=== PATIENT | female | born 1970 | race Caucasian/White ===

== ENCOUNTER 2016-12-09 09:22 | Observation (INO) | payer MEDICAID ==
[2016-12-09] MEDS ORDERED: ASPIRIN 81 MG TABLET, CHEWABLE PO ONE (10:20)
--- NOTE | 2016-12-09 10:24 | ER Document Report ---
ED Medical Screen (RME) - General Chief Complaint: Chest Pain Stated Complaint: CHEST PAINS Mode of Arrival: Ambulatory Information source: Patient Notes: This is a 46-year-old female who presents to the ER with substernal chest pain. She states that the pain started at rest at about 1900 last night. She had difficulty sleeping. The pain is described as a pressure that radiates to her left upper extremity. She has had associated nausea and diaphoresis as well as shortness of breath. No prior history of this chest pain. She states she had a stress test in 2013. She has significant family history of coronary artery disease including a sister who had a heart attack at age 51 and 2 brothers who have had bypass surgery. TRAVEL OUTSIDE OF THE [place] IN LAST 30 DAYS: No - Related Data Allergies/Adverse Reactions: cimetidine [From Tagamet] Allergy (Verified 05/28/14 15:53) cimetidine HCl [From Tagamet] Allergy (Verified 05/28/14 15:53) prochlorperazine edisylate [From Compazine] Allergy (Verified 05/28/14 15:53) prochlorperazine maleate [From Compazine] Allergy (Verified 05/28/14 15:53) Past Medical History Neurological Medical History: Reports: Hx Migraine Renal/ Medical History: Denies: Hx Peritoneal Dialysis Past Surgical History: Reports: Hx Appendectomy, Hx Cholecystectomy, Hx Orthopedic Surgery - left knee - Immunizations Hx Diphtheria, Pertussis, Tetanus Vaccination: Yes Physical Exam - Vital signs Vitals: Temp Pulse Resp BP Pulse Ox 98.5 F 65 16 138/85 H 98 12/09/16 09:32 12/09/16 09:32 12/09/16 09:32 12/09/16 09:32 12/09/16 09:32 - General General appearance: Appears well In distress: None - Respiratory Respiratory status: No respiratory distress Breath sounds: Normal. No: Rales, Rhonchi, Wheezing - Cardiovascular Rhythm: Regular Heart sounds: Normal auscultation, S1 appreciated, S2 appreciated Course - Vital Signs Vital signs: Temp Pulse Resp BP Pulse Ox 98.5 F 65 16 138/85 H 98 12/09/16 09:32 12/09/16 09:32 12/09/16 09:32 12/09/16 09:32 12/09/16 09:32
--- NOTE | 2016-12-09 11:35 | ER Document Report ---
ED Cardiac - General Chief Complaint: Chest Pain Stated Complaint: CHEST PAINS Mode of Arrival: Ambulatory Information source: Patient Notes: Patient is a 46-year-old female who presents today with 2 weeks of intermittent palpitations lasting line 5 minutes. She states she has had 3 episodes in the last 2 weeks. She states yesterday she had some substernal "pressure", that was constant, worse when she touches it and leans forward. Mild radiation to the back. She states some shortness of breath. She denies any recent trips or travel. She does state she's had some lower extremity bilateral "cramping", left greater than right. She states nausea without vomiting. She denies any other aggravating or relieving factors. It is nonexertional. She does not smoke. Patient's brother had bypass at 57 years of age. Patient is still having menstrual periods. TRAVEL OUTSIDE OF THE [place] IN LAST 30 DAYS: No - HPI Patient complains to provider of: Chest pain Was the onset of pain: Gradual Is the pain a: New problem Chest pain radiation location: Back Severity now: Mild Severity at worst: Moderate Pain level currently: 1 Cardiac risk factors: + Family history Positive cardiac history: No Associated symptoms: Other - See above Exacerbated by: Denies Relieved by: Nothing Similar symptoms previously: No Recently seen / treated by doctor: No - Related Data Allergies/Adverse Reactions: cimetidine [From Tagamet] Allergy (Verified 05/28/14 15:53) cimetidine HCl [From Tagamet] Allergy (Verified 05/28/14 15:53) prochlorperazine edisylate [From Compazine] Allergy (Verified 05/28/14 15:53) prochlorperazine maleate [From Compazine] Allergy (Verified 05/28/14 15:53) Past Medical History - General Information source: Patient - Social History Smoking Status: Never Smoker Cigarette use (# per day): No Chew tobacco use (# tins/day): No Smoking Education Provided: No Frequency of alcohol use: None Drug Abuse: None Family History: Reviewed & Not Pertinent Neurological Medical History: Reports: Hx Migraine Renal/ Medical History: Denies: Hx Peritoneal Dialysis Past Surgical History: Reports: Hx Appendectomy, Hx Cholecystectomy, Hx Orthopedic Surgery - left knee - Immunizations Hx Diphtheria, Pertussis, Tetanus Vaccination: Yes Review of Systems - Review of Systems Constitutional: denies: Fever EENT: denies: Eye discharge, Nose discharge Respiratory: denies: Short of breath Gastrointestinal: denies: Vomiting Genitourinary: denies: Dysuria Musculoskeletal: denies: Leg swelling Skin: Other - no hives. denies: Rash Neurological/Psychological: Other - no slurred speech -: Yes All other systems reviewed and negative Physical Exam - Vital signs Vitals: Temp Pulse Resp BP Pulse Ox 98.5 F 65 16 138/85 H 98 12/09/16 09:32 12/09/16 09:32 12/09/16 09:32 12/09/16 09:32 12/09/16 09:32 Notes: Reviewed vital signs and nursing note as charted by RN. CONSTITUTIONAL: Alert and oriented and responds appropriately to questions. Well -appearing; well-nourished HEAD: Normocephalic; atraumatic CARD: Regular rate and rhythm; no murmurs, no clicks, no rubs, no gallops; symmetric distal pulses RESP: Normal chest excursion without splinting or tachypnea; mild tenderness to palpation of the left anterior chest wall; breath sounds clear and equal bilaterally; no wheezes, no rhonchi, no rales. ABD/GI: Normal bowel sounds; non-distended; soft, non-tender, no rebound, no guarding; no palpable organomegaly or masses BACK: The back appears normal and is non-tender to palpation, there is no CVA tenderness EXT: Normal ROM in all joints; non-tender to palpation; no cyanosis, no effusions, no edema SKIN: Normal color for age and race; warm; dry; good turgor; capillary refill < 2 seconds; no acute lesions noted NEURO: CN II through XII are intact. Moves all extremities equally; Motor and sensory function intact PSYCH: The patient's mood and manner are appropriate. Grooming and personal hygiene are appropriate. Course - Re-evaluation Re-evalutation: 12/09/16 11:37 Heart rate 55, normal sinus rhythm, normal axis, incomplete right bundle branch block, no obvious ST elevation or depression. Given the history and physical examination, low heart score, tenderness to palpation reproducible, I do believe dissection and pulmonary embolism to be unlikely. Given that the patient complains of bilateral leg pain, left greater than right, I will Doppler the patient's lower extremity. Given that the family history, I will order one set of cardiac enzymes. 12/09/16 12:32 Labs as recorded. Normal d-dimer. 12/09/16 12:58 Labs as recorded. Normal thyroid level. Normal troponin. Doppler pending. Chest x-ray shows normal heart, normal mediastinum, no fractures, normal lung muñoz, no pneumothorax. 12/09/16 13:53 Doppler shows no DVT. Patient's vital signs are still stable. Given the history and physical examination with the above evaluation, with still tenderness upon palpation of the left chest, I believe it is reasonable to discharge the patient home with strict return precautions and follow-up at the primary care provider. - Vital Signs Vital signs: Temp Pulse Resp BP Pulse Ox 98.5 F 65 16 138/85 H 98 12/09/16 09:32 12/09/16 09:32 12/09/16 09:32 12/09/16 09:32 12/09/16 09:32 - Laboratory Result Diagrams: 12/09/16 11:42 12/09/16 11:42 Laboratory results interpreted by me: 12/09/16 11:42 RDW 14.3 H Discharge - Discharge Clinical Impression: Chest wall pain, Atypical chest pain Condition: Good Disposition: HOME, SELF-CARE Additional Instructions: Please take an 81 mg aspirin daily and please follow-up with your primary care physician as well as possibly the telephone collector as we have discussed for further evaluation. Come back immediately for any worsening pain, change in location or quality of pain, leg swelling, fever, or any other acute problems. Referrals: SUDEEP NAYLOR MD [Primary Care Provider] - Follow up as needed BENJY MILLER MD [ACTIVE STAFF] - Follow up as needed
[2016-12-09 12:00] LABS: ABSOLUTE BASOPHILS # (AUTO) 0.1 10^3/uL (0.0-0.2); ABSOLUTE EOSINOPHILS # (AUTO) 0.2 10^3/uL (0.0-0.6); ABSOLUTE LYMPHOCYTES (AUTO) 2.6 10^3/uL (0.5-4.7); ABSOLUTE MONOCYTES (AUTO) 0.9 10^3/uL (0.1-1.4); ABSOLUTE NEUT (AUTO) 5.2 10^3/uL (1.7-8.2); BASOPHILS % (AUTO) 1.2 % (0-2); EOSINOPHILS % (AUTO) 2.6 % (0-6); HEMATOCRIT 43.1 % (36.0-47.0); HEMOGLOBIN 14.3 g/dL (12.0-15.5); HGB HCT DIFFERENCE -0.2; LYMPHOCYTES % (AUTO) 29.2 % (13-45); MEAN CORPUSCULAR HEMOGLOBIN 29.4 pg (27.0-33.4); MEAN CORPUSCULAR HGB CONC 33.3 g/dL (32.0-36.0); MEAN CORPUSCULAR VOLUME 88 fl (80-97); MONOCYTES % (AUTO) 9.7 % (3-13); RED BLOOD COUNT 4.87 10^6/uL (3.72-5.28); RED CELL DISTRIBUTION WIDTH 14.3 % (11.5-14.0); SEGMENTED NEUTROPHILS % (AUTO) 57.3 % (42-78)
[2016-12-09 12:20] LABS: ALANINE AMINOTRANSFERASE 33 U/L (9-52); ALBUMIN 4.1 g/dL (3.5-5.0); ALKALINE PHOSPHATASE 83 U/L (38-126); ANION GAP 13 (5-19); ASPARTATE AMINO TRANSFERASE 20 U/L (14-36); BILIRUBIN,DIRECT 0.1 mg/dL (0.0-0.4); BILIRUBIN,TOTAL 0.5 mg/dL (0.2-1.3); BLOOD UREA NITROGEN 12 mg/dL (7-20); CALCIUM 9.6 mg/dL (8.4-10.2); CARBON DIOXIDE 23 mmol/L (22-30); CHLORIDE 107 mmol/L (98-107); CREATINE KINASE 79 U/L (30-135); CREATININE RESULT 0.81 mg/dL (0.52-1.25); GLUCOSE 93 mg/dL (75-110); POTASSIUM 4.1 mmol/L (3.6-5.0); SODIUM 142.9 mmol/L (137-145); TOTAL PROTEIN 7.2 g/dL (6.3-8.2)
[2016-12-09 12:33] LABS: CREATINE KINASE MB 0.97 ng/mL (<4.55); TROPONIN I < 0.012 ng/mL
[2016-12-09] MEDS ORDERED: MAG HYDROX/AL HYDROX/SIMETH SUSP 30 ML UDCUP PO ONE (14:25)
[2016-12-09] MEDS ORDERED: LIDOCAINE 2% VISCOUS SOLN 20 ML UDCUP PO ONE (14:25)
[2016-12-09] MEDS ORDERED: METOCLOPRAMIDE HCL ORAL SOLN 10 MG/10 ML UDCUP PO ONE (14:25)
[2016-12-09] MEDS ORDERED: ONDANSETRON HCL INJ/PF 4 MG/2 ML SDV IV PRN (15:58)
[2016-12-09] MEDS ORDERED: ONDANSETRON 4 MG TAB.RAPDIS PO PRN (15:58)
[2016-12-09] MEDS ORDERED: ACETAMINOPHEN 325 MG TABLET PO PRN (15:58)
[2016-12-09] MEDS ORDERED: DIAZEPAM 5 MG TABLET PO PRN (16:03)
--- NOTE | 2016-12-09 16:14 | XCELERA REPORT ---
[address] [address] Lower Extremity Venous Evaluation Name: JEAN PAUL PAREKH Age: 46 yrs Gender: Female : 1970 Patient Status: Emergency Patient Location: ER Study Date: 12/09/2016 01:07 PM Procedure: Color flow and duplex imaging of the veins of the left lower extremity as well as the right Common Femoral vein. Reason For Study: 4, left lower extremity pain Ordering Physician: ARIANA MEDRANO Performed By: Sadie Montelongo Right Sided Venous Evaluation The right common femoral vein is fully compressible. Spontaneous and phasic flow is present in the right common femoral vein. Left Sided Venous Evaluation Normal vessel filling wall to wall, compression and augmentation as well as Colour flow down to the infrageniculate veins. Critical Findings Called in to Dr Stan (O). Interpretation Summary No duplex evidence of DVT or obstruction in the left lower extremity nor in the right Common Femoral vein. : ARIANA MEDRANO > Yasir Tan
--- NOTE | 2016-12-09 16:29 | PDOC H&P ---
History of Present Illness Admission Date/PCP: 12/09/16 14:37 SUDEEP NAYLOR MD Patient complains of: Chest pain History of Present Illness: JEAN PAUL PAREKH is a 46 year old female who has a family history of heart disease who presents with chest pain. Patient reports that she began expressing chest pain yesterday evening and she described it as a substernal chest pressure that went through to her back. She has some associated nausea and diaphoresis but no vomiting. Patient reported the pain was initially 10 out of 10 and has continued through most of the night. The patient course that she is currently having minimal pain since coming to the emergency room. The patient denies any palpitations or tachycardia currently but has been using had episodes of palpitations and tachycardia. She denies any orthopnea or PND. She does have some nausea and does report acid reflux symptoms. She has a long history of gastric reflux and is currently on Zantac. She does occasionally have some sour brash taste also in the back of her throat. Patient reports that her pain did not get worse with walking or sitting and was not positional. It was not reproducible with palpation of her chest wall. She does report that if she thinks about eating some greasy food the pain does get somewhat worse however she had her gallbladder out several years ago. Past Medical History Cardiac Medical History: Denies: Coronary Artery Disease Pulmonary Medical History: Reports: None EENT Medical History: Reports: None Neurological Medical History: Reports: Migraine Endocrine Medical History: Reports: None Renal/ Medical History: Reports: None Malignancy Medical History: Reports: None GI Medical History: Reports: Gastroesophageal Reflux Disease Musculoskeltal Medical History: Reports: None Psychiatric Medical History: Reports: None Hematology: Reports: None Infectious Medical History: Reports: None Past Surgical History Past Surgical History: Reports: Appendectomy, Cholecystectomy, Orthopedic Surgery - left knee Social History Information Source: Patient Lives with: Spouse/Significant other Smoking Status: Never Smoker Frequency of Alcohol Use: None Hx Recreational Drug Use: No Drugs: None Hx Prescription Drug Abuse: No - Advance Directive Resuscitation Status: Full Code Surrogate healthcare decision maker:: Her significant other is Jimbo Sprague. Family History Family History: Mother at age 81 from coronary artery disease and diabetes. Father at age 64 from coronary artery disease. Parental Family History Reviewed: Yes Children Family History Reviewed: No Sibling(s) Family History Reviewed.: No Medication/Allergy Home Medications: Ranitidine HCl [Zantac 150 mg Tablet] 150 mg PO DAILY 12/09/16 Zolmitriptan [Zomig] 5 mg PO ASDIR PRN 12/09/16 Allergies/Adverse Reactions: cimetidine [From Tagamet] Allergy (Verified 05/28/14 15:53) cimetidine HCl [From Tagamet] Allergy (Verified 05/28/14 15:53) prochlorperazine edisylate [From Compazine] Allergy (Verified 05/28/14 15:53) prochlorperazine maleate [From Compazine] Allergy (Verified 05/28/14 15:53) Review of Systems Constitutional: ABSENT: chills, fever(s), headache(s), weight gain, weight loss Eyes: ABSENT: visual disturbances Ears: ABSENT: hearing changes Cardiovascular: PRESENT: as per HPI Respiratory: ABSENT: cough, hemoptysis Gastrointestinal: PRESENT: heartburn, nausea. ABSENT: coffee ground emesis, hematemesis, melena Genitourinary: ABSENT: dysuria, hematuria Musculoskeletal: ABSENT: joint swelling Integumentary: ABSENT: rash, wounds Neurological: ABSENT: abnormal gait, abnormal speech, confusion, dizziness, focal weakness, syncope Psychiatric: ABSENT: anxiety, depression Endocrine: ABSENT: cold intolerance, heat intolerance, polydipsia, polyuria Hematologic/Lymphatic: ABSENT: easy bleeding, easy bruising Physical Exam Vital Signs: Temp Pulse Resp BP Pulse Ox 98.5 F 65 16 138/85 H 98 12/09/16 09:32 12/09/16 09:32 12/09/16 09:32 12/09/16 09:32 12/09/16 09:32 General appearance: PRESENT: no acute distress, well-developed, well-nourished Head exam: PRESENT: atraumatic, normocephalic Eye exam: PRESENT: conjunctiva pink, EOMI, PERRLA. ABSENT: scleral icterus Ear exam: PRESENT: normal external ear exam Mouth exam: PRESENT: moist, tongue midline Neck exam: ABSENT: carotid bruit, JVD, lymphadenopathy, thyromegaly Respiratory exam: PRESENT: clear to auscultation keyla. ABSENT: rales, rhonchi, wheezes Cardiovascular exam: PRESENT: RRR. ABSENT: diastolic murmur, rubs, systolic murmur Pulses: PRESENT: normal dorsalis pedis pul Vascular exam: PRESENT: normal capillary refill GI/Abdominal exam: PRESENT: normal bowel sounds, soft. ABSENT: distended, guarding, mass, organolmegaly, rebound, tenderness Rectal exam: PRESENT: deferred Extremities exam: ABSENT: calf tenderness, clubbing, pedal edema Neurological exam: PRESENT: alert, awake, oriented to person, oriented to place , oriented to time, oriented to situation, CN II-XII grossly intact. ABSENT: motor sensory deficit Psychiatric exam: PRESENT: appropriate affect Skin exam: PRESENT: dry, intact, warm. ABSENT: cyanosis, rash Results Impressions: Chest X-Ray 12/09/16 10:21 IMPRESSION: NO ACUTE RADIOGRAPHIC FINDING IN THE CHEST. Assessment & Plan - Diagnosis (1) Chest pain Qualifiers: Chest pain type: unspecified Qualified Code(s): R07.9 - Chest pain, unspecified Is this a current diagnosis for this admission?: YesPlan: The patient has a family history of heart disease but has no other risk factors herself. The pain is suggestive of a reflux in that she has some nausea, sour brash, radiation through to her back. The patient's d-dimer was unremarkable and the possibility of a pulmonary embolus was considered but is highly unlikely in light of a normal d-dimer. We will increase her Zantac to 300 mg twice a day and monitor on telemetry. We'll check serial cardiac enzymes and if the enzymes are unremarkable we'll plan on doing a stress test in the morning. There is a component of anxiety also to this and we will give her Valium when necessary. (2) Gastroesophageal reflux disease Is this a current diagnosis for this admission?: YesPlan: We'll increase Zantac to 300 mg by mouth twice a day. (3) Migraines Is this a current diagnosis for this admission?: YesPlan: Patient is currently pain-free from her migraines. - Time Time Spent: 50 to 70 Minutes - Inpatient Certification Medical Necessity: Need Close Monitoring Due to Risk of Patient Decompensation - Plan Summary Plan Summary: will admit as an observation admission
[2016-12-09] MEDS: METOCLOPRAMIDE HCL 10 MG TABLET PO SCH ×2 (17:06→23:38)
[2016-12-09 17:18] LABS: CREATINE KINASE MB 0.83 ng/mL (<4.55)
[2016-12-09 17:24] LABS: TROPONIN I < 0.012 ng/mL
[2016-12-09] MEDS ORDERED: (PENDING PHARMACY ID) (Ranitidine Hcl [Zantac 150 Mg Tablet] 300 MG) PO SCH (18:00)
[2016-12-09] MEDS: FAMOTIDINE 20 MG TABLET PO SCH (19:56)
--- NOTE | 2016-12-09 21:14 | EKG REPORT ---
SEVERITY:- ABNORMAL ECG - SINUS RHYTHM INCOMPLETE RIGHT BUNDLE BRANCH BLOCK : Confirmed by: Arash Erwin 09-Dec-2016 21:14:13
--- NOTE | 2016-12-09 21:14 | EKG REPORT ---
SEVERITY:- ABNORMAL ECG - SINUS RHYTHM INCOMPLETE RIGHT BUNDLE BRANCH BLOCK : Confirmed by: Arash Erwin 09-Dec-2016 21:14:08
[2016-12-09 23:39] LABS: CREATINE KINASE MB 0.62 ng/mL (<4.55)
[2016-12-09 23:43] LABS: TROPONIN I < 0.012 ng/mL
[2016-12-10 05:08] LABS: HEMATOCRIT 42.3 % (36.0-47.0); HEMOGLOBIN 14.4 g/dL (12.0-15.5); HGB HCT DIFFERENCE 0.9; MEAN CORPUSCULAR HEMOGLOBIN 30.1 pg (27.0-33.4); MEAN CORPUSCULAR HGB CONC 34.1 g/dL (32.0-36.0); MEAN CORPUSCULAR VOLUME 88 fl (80-97); RED BLOOD COUNT 4.78 10^6/uL (3.72-5.28); RED CELL DISTRIBUTION WIDTH 14.1 % (11.5-14.0); WHITE BLOOD COUNT 7.5 10^3/uL (4.0-10.5)
[2016-12-10 05:24] LABS: ANION GAP 11 (5-19); BLOOD UREA NITROGEN 10 mg/dL (7-20); CALCIUM 9.3 mg/dL (8.4-10.2); CARBON DIOXIDE 23 mmol/L (22-30); CHLORIDE 107 mmol/L (98-107); CREATINE KINASE 69 U/L (30-135); CREATININE RESULT 0.67 mg/dL (0.52-1.25); GLUCOSE 92 mg/dL (75-110); MAGNESIUM 2.1 mg/dL (1.6-2.3); POTASSIUM 4.3 mmol/L (3.6-5.0); SODIUM 140.6 mmol/L (137-145)
[2016-12-10 05:32] LABS: CREATINE KINASE MB 0.65 ng/mL (<4.55)
[2016-12-10 05:38] LABS: TROPONIN I < 0.012 ng/mL
[2016-12-10] MEDS: METOCLOPRAMIDE HCL 10 MG TABLET PO SCH ×2 (12:28→15:44)
[2016-12-10] MEDS: FAMOTIDINE 20 MG TABLET PO SCH (12:28)
[2016-12-10 12:59] VITALS: BP 140/88
--- NOTE | 2016-12-10 15:25 | PDOC DISCHARGE SUMMARY ---
General - Admit/Disc Date/PCP Admission Date/Primary Care Provider: 12/09/16 15:58 SUDEEP NAYLOR MD Discharge Date: 12/10/16 - Discharge Diagnosis (1) Chest pain Is this a current diagnosis for this admission?: YesSummary: Most likely secondary to gastroesophageal reflux disease. Had a normal stress test. (2) Gastroesophageal reflux disease Is this a current diagnosis for this admission?: Yes (3) Migraines Is this a current diagnosis for this admission?: Yes - Additional Information Resuscitation Status: Full Code Discharge Diet: Regular Discharge Activity: Activity As Tolerated Home Medications: Ranitidine HCl [Zantac 150 mg Tablet] 150 mg PO DAILY 12/09/16 Zolmitriptan [Zomig] 5 mg PO ASDIR PRN 12/09/16 Diazepam [Valium 5 mg Tablet] 5 mg PO Q8HP PRN #20 tablet 12/10/16 History of Present Illness History of Present Illness: JEAN PAUL PAREKH is a 46 year old female who has a family history of heart disease who presents with chest pain. Patient reports that she began expressing chest pain yesterday evening and she described it as a substernal chest pressure that went through to her back. She has some associated nausea and diaphoresis but no vomiting. Patient reported the pain was initially 10 out of 10 and has continued through most of the night. The patient course that she is currently having minimal pain since coming to the emergency room. The patient denies any palpitations or tachycardia currently but has been using had episodes of palpitations and tachycardia. She denies any orthopnea or PND. She does have some nausea and does report acid reflux symptoms. She has a long history of gastric reflux and is currently on Zantac. She does occasionally have some sour brash taste also in the back of her throat. Patient reports that her pain did not get worse with walking or sitting and was not positional. It was not reproducible with palpation of her chest wall. She does report that if she thinks about eating some greasy food the pain does get somewhat worse however she had her gallbladder out several years ago. Hospital Course Hospital Course: 46-year-old female who presented with atypical chest pain. Patient was monitored on telemetry and had negative cardiac enzymes. She then underwent a stress test that was negative for any type of ischemia. The patient was instructed to increase her Zantac and if her symptoms were continuing after a week or 2 that her primary care doctor could refer her to gastrologist for further evaluation. Patient also did have component of anxiety was given a prescription for time to use when necessary for the next several days. Physical Exam Vital Signs: Temp Pulse Resp BP Pulse Ox 98.5 F 74 16 140/88 H 100 12/10/16 12:00 12/10/16 15:14 12/10/16 12:00 12/10/16 12:00 12/10/16 12:00 Intake & Output 12/09/16 12/10/16 12/11/16 06:59 06:59 06:59 Intake Total 490 600 Balance 490 600 Weight 108.8 kg General appearance: PRESENT: no acute distress Eye exam: PRESENT: conjunctiva pink. ABSENT: scleral icterus Mouth exam: PRESENT: moist, tongue midline Neck exam: ABSENT: JVD Respiratory exam: PRESENT: clear to auscultation keyla. ABSENT: rales, rhonchi, wheezes Cardiovascular exam: PRESENT: RRR. ABSENT: diastolic murmur, rubs, systolic murmur GI/Abdominal exam: PRESENT: normal bowel sounds, soft. ABSENT: distended, guarding, mass, organolmegaly, rebound, tenderness Extremities exam: ABSENT: calf tenderness, clubbing, pedal edema Neurological exam: PRESENT: alert, awake, oriented to person, oriented to place , oriented to time, oriented to situation, CN II-XII grossly intact. ABSENT: motor sensory deficit Psychiatric exam: PRESENT: appropriate affect Skin exam: PRESENT: dry, intact, warm. ABSENT: cyanosis, rash Results Laboratory Results: 12/10/16 04:50 12/10/16 04:50 12/10/16 12/10/16 04:50 04:50 WBC 7.5 RBC 4.78 Hgb 14.4 Hct 42.3 MCV 88 MCH 30.1 MCHC 34.1 RDW 14.1 H Plt Count 205 Sodium 140.6 Potassium 4.3 Chloride 107 Carbon Dioxide 23 Anion Gap 11 BUN 10 Creatinine 0.67 Est GFR ( Amer) > 60 Est GFR (Non-Af Amer) > 60 Glucose 92 Calcium 9.3 Magnesium 2.1 12/09/16 12/09/16 12/09/16 16:29 16:29 22:40 Creatine Kinase 73 77 CK-MB (CK-2) 0.83 Troponin I < 0.012 12/09/16 12/10/16 12/10/16 22:40 04:50 04:50 Creatine Kinase 69 CK-MB (CK-2) 0.62 0.65 Troponin I < 0.012 < 0.012 Impressions: Chest X-Ray 12/09/16 10:21 IMPRESSION: NO ACUTE RADIOGRAPHIC FINDING IN THE CHEST. Qualifiers PATEINT BEING DISCHARGED WITH ANY OF THE FOLLOWING DIAGNOSIS?: No Plan Discharge Plan: Patient is discharged home in stable condition. Will follow up with primary care doctor in 2 weeks. Time Spent: Less than 30 Minutes
--- NOTE | 2016-12-12 13:52 | DRAGON STRESS TEST REPORT ---
Exercise EKG treadmill Cardiolite stress test using SPECT. Data procedure: 12/10/2016. Ordering Provider: Dr. Jorge Arana. Primary Care Physician: Dr. Brionna Gray. Indication: Chest pain. Coronary risk factors: Age, and family history of coronary artery disease. Significant physical findings prior to stress testing show a blood pressure of 137/86, and a heart rate of 78 beats per minute. Auscultation of the heart shows normal S1 and S2.No S3 or S4 gallops. Systolic murmur in the left sternal border and apex. Lungs are clear to auscultation and percussion. Resting 12-lead EKG: Sinus Rhythm. Within Normal Limits. Procedure: The patient was excised on a standard Ronni protocol. . The patient walked a total of 7 minutes and 10 seconds on this protocol and reached a peak heart rate of 148 beats per minute, which is 85 % of maximum predicted heart rate for age. This is at a workload of 10 point METS. The test was stopped because of] shortness of breath, and 85% of maximum temperature heart rate achieved. The patient described symptoms of chest pressure and shortness of breath beginning 5 minutes and 15 seconds into exercise at a heart rate of 126 beats per minute.this was described as 1/3 scale of symptomatology. This did not increase at peak exercise the patient had the same discomfort scale. [This discomfort totally dissipated immediately in recovery phase. It is not clear whether these are true cut anginal symptoms or shortness of breath due to unaccustomed exercise.. Exercise EKG's show: There is no EKG evidence of exercise-induced ischemia. Arrhythmias seen:None The blood pressure response was normal At peak exercise the blood pressure was 157/74 millimeters of Hg The double product was 17.45 K.. Summary of findings and interpretation: 1. The patient reproduced symptoms of chest pressure and shortness of breath. But it's not clear with the whether this is secondary to her unaccustomed exercise causing shortness of breath along with chest pressure 2.No EKG evidence of ischemia in the form of ST segment depression. 3. Normal blood pressure response. 4. No arrhythmias seen. 5. Good exercise tolerance, good aerobic capacity. Diagnostic treadmill stress test negative for ischemia by EKG criteria., But symptoms reproduced. Recommendations: Correlate with nuclear Cardiolite images. Nuclear data: At rest the patient was given 16.07 millicuries of technetium 99 sestamibi, and as per protocol rest none gated SPECT images were obtained. The patient was exercised on a treadmill [see exercise physiology]. One minute prior to termination of exercise, 46.5 millicuries of technetium and there sestamibi was injected intravenously. As per protocol stress gated images were obtained. Impression: Review of images show that all segments of the myocardium had normal perfusion at rest, and normal perfusion post exercise. All segments of the myocardium had normal motion, contraction, and thickening by gated study. T. I D. ratio was normal at 1.10. The computer read rest and stress left ventricular ejection fractions were 55 % and 59 % respectively. Conclusions: 1. The patient's symptoms of shortness of breath and chest pressure reproduced , but no exercise-induced myocardial ischemia , by EKG changes at a peak heart rate 148 of beats per minute, patient having achieved 85 % of maximum predicted heart rate for age, at a workload of METS 10.10. 2. No EKG evidence of exercise-induced myocardial ischemia. 3. No arrhythmias seen. 4. No scintigraphic evidence of exercise-induced myocardial ischemia. 5. No scintigraphic evidence of myocardial infarction/scar. Recommendations 1.Would treat the patient for presumed coronary artery disease, since sometimes balanced ischemia may be missed. 2.Would recommend close medical/cardiology follow-up of the patient. 3.If the patient continues to have symptoms of chest pressure and shortness of breath with exertion, in spite of maximal medical treatment, then would recommend cardiac catheterization. 4.Aggressive coronary risk factor modification, and treatment of underlying comorbidities. ISABEL
== END 2016-12-10 16:53 | disposition home or self-care (01) ==
LOC: ER 09:22 → EH 14:37 → UNDOADMOB 14:37 → EH 15:58 → 4S 21:24
PROVIDERS: ADMIT Emergency Medicine; ATTEND Emergency Medicine
DX: R07.89 Other chest pain (principal); K21.9 Gastro-esophageal reflux disease without esophagitis; G43.901 Migraine, unspecified, not intractable, with status migrainosus; F41.9 Anxiety disorder, unspecified; I45.10 Unspecified right bundle-branch block; M79.605 Pain in left leg; M79.604 Pain in right leg; Z82.49 Family history of ischemic heart disease and other diseases of the circulatory system; Z79.899 Other long term (current) drug therapy; Z90.49 Acquired absence of other specified parts of digestive tract
CPT/HCPCS: 93005; 99285; 36415 ×2; 82553 ×2; 82550 ×2; 83735; 84443; 85025; 85027; 81025; 80048; 80053; 84484 ×2; 85379; 93971 ×2; 93017; 71010; 78452; 93010; G0378 ×3; A9500; J3490 ×9; Q9969

== ENCOUNTER 2016-12-28 07:17 | Day surgery (SDC) | payer MEDICAID ==
[~2016-12-28 07:17] MED LIST: PROPOFOL INJ 200 MG/20 ML VIAL IV ONE
[2016-12-28] MEDS ORDERED: SIMETHICONE 80 MG TAB.CHEW PO ONE (08:35)
[2016-12-28] MEDS ORDERED: SIMETHICONE 80 MG TAB.CHEW ONE (08:36)
[2016-12-28 09:05] VITALS: BP 146/87
--- NOTE | 2016-12-28 14:23 | Operative Report ---
Operative Report DATE OF SURGERY: 12/28/16 Operative Report: The risks, benefits and alternatives of the procedure including risks of bleeding, perforation requiring surgery are explained to the patient detail and informed consent is obtained. Patient is taken back to the endoscopy suite and placed in a left, lateral decubital position. Timeout is called. Propofol medications administered. A rectal examination is done which did not reveal any masses, tears or fissures. An Olympus videoscope was inserted into the patient's rectum. The scope was then gradually advanced all the way to the cecum. The cecum was identified by the usual anatomical landmarks including the ileocecal valve as well as the appendiceal office. Photodocumentation is obtained. Scope was then sequentially pulled back via the rest segments of the colon including the ascending colon, hepatic flexure, transverse colon, splenic flexure, descending colon and finally into the rectosigmoid portions of the colon. Retroflexion maneuvers performed. Prep is good. The risks benefits and alternatives of the procedure explained to the patient in detail and informed consent is obtained. a GIF Olympus video scope was inserted into the patient's mouth and hypopharynx ,the esophagus is identified intubated and insufflated, the scope was then advanced through the esophagus stomach and duodenum, retroflexion maneuver is done, the esophagus stomach and first and second portions of the duodenum examined PREOPERATIVE DIAGNOSIS: Change of bowel habits. Epigastric pain rule out peptic ulcer disease POSTOPERATIVE DIAGNOSIS: Mild right-sided inflammation status post biopsy. Internal hemorrhoids. Gastritis OPERATION: Colonoscopy with biopsy. EGD with biopsy SURGEON: MICA KINSEY ANESTHESIA: LMAC TISSUE REMOVED OR ALTERED: Right-sided colon mucosal specimens obtained. Gastric mucosal specimens obtained COMPLICATIONS: None. ESTIMATED BLOOD LOSS: none. INTRAOPERATIVE FINDINGS: As described above. PROCEDURE: Patient tolerated the procedure well. No immediate postprocedure complications are noted. Patient is discharged in good condition. Discharge date 12/28/2016. Discharge diet: Regular. Discharge activity: Regular. 2-3 week follow-up to discuss findings. We'll await on biopsies. Patient is instructed to call the office or proceed to the emergency room should there be any further problems or questions.
== END 2016-12-28 09:45 | disposition home or self-care (01) ==
LOC: END 07:17
PROVIDERS: ATTEND Internal Medicine Gastroenterology
PROC: 0DB68ZX Excision of Stomach, Via Natural or Artificial Opening Endoscopic, Diagnostic (ICD-10-PCS; principal; 2016-12-28 08:00)
PROC: 0DBF8ZX Excision of Right Large Intestine, Via Natural or Artificial Opening Endoscopic, Diagnostic (ICD-10-PCS; 2016-12-28 08:00)
DX: K52.9 Noninfective gastroenteritis and colitis, unspecified (principal); K64.8 Other hemorrhoids; K31.9 Disease of stomach and duodenum, unspecified; K21.9 Gastro-esophageal reflux disease without esophagitis; R51 Headache; Z79.899 Other long term (current) drug therapy; Z88.8 Allergy status to other drugs, medicaments and biological substances; Z88.5 Allergy status to narcotic agent
CPT/HCPCS: 43239; 45380; 88342 ×2; 88305 ×2; J2704; 740

== ENCOUNTER 2019-01-15 08:47 | Emergency (ER) | payer MEDICAID ==
[2019-01-15 09:01] VITALS: BP 151/108
[2019-01-15] MEDS ORDERED: LIDOCAINE 1% INJ-PF (10 MG/ML) 30 ML SDV INJ ONE (09:47)
[2019-01-15] MEDS ORDERED: DIPH/PERTUSS(ACELL)/TETANUS VAC/PF 0.5 ML SYR (>=10YO) IM ONE (09:47)
[2019-01-15] MEDS ORDERED: ACETAMINOPHEN 325 MG TABLET PO ONE (09:47)
--- NOTE | 2019-01-15 09:50 | ER Document Report ---
ED Medical Screen (RME) - General Chief Complaint: Laceration Stated Complaint: HAND LACERATION Time Seen by Provider: 01/15/19 09:47 Primary Care Provider: DACIA MURRY PA-C [Primary Care Provider] - Follow up as needed Mode of Arrival: Ambulatory Information source: Patient Notes: Patient was cutting chicken and slipped cutting her left hand. Patient with large laceration to the base of her left thumb and thenar eminence. No active bleeding. I have greeted and performed a rapid initial assessment of this patient. A comprehensive ED assessment and evaluation of the patient, analysis of test results and completion of the medical decision making process will be conducted by additional ED providers. TRAVEL OUTSIDE OF THE [place] IN LAST 30 DAYS: No - Related Data Allergies/Adverse Reactions: cimetidine [From Tagamet] Allergy (Severe, Verified 12/28/16 07:06) Anaphylaxis cimetidine HCl [From Tagamet] Allergy (Severe, Verified 12/28/16 07:06) Anaphylaxis meperidine [From Demerol] Allergy (Severe, Verified 12/28/16 07:06) Anaphylaxis prochlorperazine edisylate [From Compazine] Allergy (Severe, Verified 12/28/16 07:06) Anaphylaxis prochlorperazine maleate [From Compazine] Allergy (Severe, Verified 12/28/16 07:06) Anaphylaxis ketorolac [From Toradol] Allergy (Verified 01/15/19 08:57) adhesive Adverse Reaction (Intermediate, Verified 12/28/16 07:06) Blisters IV CONTRAST DYE Allergy (Severe, Uncoded 12/28/16 07:06) DIFFICULTY BREATHING, SWEATING Past Medical History - Past Medical History Cardiac Medical History: Denies: Hx Coronary Artery Disease, Hx Heart Attack, Hx Hypertension Pulmonary Medical History: Reports: Hx Pneumonia - years ago Denies: Hx Asthma, Hx Bronchitis, Hx COPD Neurological Medical History: Reports: Hx Migraine. Denies: Hx Cerebrovascular Accident, Hx Seizures Renal/ Medical History: Denies: Hx Peritoneal Dialysis GI Medical History: Reports: Hx Gastroesophageal Reflux Disease Musculoskeltal Medical History: Denies Hx Arthritis Past Surgical History: Reports: Hx Appendectomy, Hx Cholecystectomy, Hx Orthopedic Surgery - left knee - Immunizations Hx Diphtheria, Pertussis, Tetanus Vaccination: Yes Physical Exam - Vital signs Vitals: Temp Pulse Resp BP Pulse Ox 98.3 F 92 18 151/108 H 96 01/15/19 09:00 01/15/19 09:00 01/15/19 09:00 01/15/19 09:00 01/15/19 09:00 - Skin Skin irregularity: Laceration - Left hand laceration Course - Vital Signs Vital signs: Temp Pulse Resp BP Pulse Ox 98.3 F 92 18 151/108 H 96 01/15/19 09:00 01/15/19 09:00 01/15/19 09:00 01/15/19 09:00 01/15/19 09:00 Doctor's Discharge - Discharge Referrals: DACIA MURRY PA-C [Primary Care Provider] - Follow up as needed
== END 2019-01-15 11:35 | disposition home or self-care (01) ==
LOC: ER 08:47
DX: S61.412A Laceration without foreign body of left hand, initial encounter (principal); W26.0XXA Contact with knife, initial encounter; Y93.G9 Activity, other involving cooking and grilling; Z87.892 Personal history of anaphylaxis; Z88.5 Allergy status to narcotic agent; Z88.8 Allergy status to other drugs, medicaments and biological substances; Z91.041 Radiographic dye allergy status
CPT/HCPCS: 99281; J3490